=== PATIENT | female | born 1970 | race Caucasian/White ===

== ENCOUNTER 2017-12-26 16:28 | Emergency (ER) | payer MEDICAID, SELFPAY ==
[2017-12-26 16:29] VITALS: BP 158/99; PULSE 84; RESP 19; TEMP 36.4; O2SAT 99; BMI 46.5
--- NOTE | 2017-12-26 16:30 | ED.RN ---
AFTER TRIAGING PT, PT C/O OF NECK PAIN, ARM PAINS, LEG PAINS, HARD TO HOLD HER HEAD UP, COLD FINGERS, COLD TOES.
--- NOTE | 2017-12-26 16:57 | CT_ITS ---
STUDY: CT ABDOMEN AND PELVIS WITHOUT CONTRAST REASON FOR EXAM: Female, 47 years old. Weakness RADIATION DOSAGE (If Supplied By Facility): CTDIvol = ( 24.12 ) mGy, DLP = ( 1343.95 ) mGycm TECHNIQUE: Transaxial images were obtained from the dome of the diaphragm to the symphysis pubis without oral contrast, and without intravenous contrast. Sagittal and coronal images were reconstructed. Individualized dose optimization techniques were used for this CT. COMPARISON: None. FINDINGS: The visualized lung bases are unremarkable. The visualized portions of the heart are within normal limits. Normal liver. Contracted gallbladder. No significant dilatation of the extrahepatic biliary system. Normal spleen. Normal pancreas. Normal bilateral adrenal glands. Normal right kidney. Normal left kidney. Normal visualized stomach. Normal small intestine. Normal colon. The appendix is visualized and appears normal. Normal abdominal aorta. Normal inferior vena cava. Normal retroperitoneum. Normal urinary bladder. Enlarged lobulated uterus. Underlying fibroids cannot be excluded. Fatty umbilical and ventral hernias are noted of the anterior abdominal wall. Normal osseous structures. CT/Abdomen/Pelvis without Cont IMPRESSION: Fatty ventral and umbilical hernias. Enlarged lobulated uterus with possible fibroids. Electronically Signed: Trey Garcia DO at 18:33 EDT Tel [phone], Service support ,
[2017-12-26] MEDS: 0.9% Normal Saline 1,000 ML 1000 ML IV (17:30)
[2017-12-26 17:49] LABS: Absolute Neutrophil Count 4.5 X10^3/uL (2.0-7.7); Basophil# 0.01 X10^3/uL; Basophil% 0.1 % (0-1); Eosinophil# 0.17 X10^3/uL; Eosinophils% 2.5 % (0-5); Hematocrit 34.1 % (37-47); Mean Corp Hgb Conc 32.3 g/gl (32-36); Mean Corpuscular Hgb 26.4 pg (27.0-32.0); Mean Platelet Vol. 10.7 fl (6.2-12.0); Monocyte# 0.42 X10^3/uL; Monocyte% 6.1 % (0-10); Neutrophil # 4.51 X10^3/uL (2.7-7.7); Platelet Count 262 K/mm3 (150-450); RBC Distribution Width CV 14.1 % (11.6-14.6); RBC Distribution Width SD 40.9 fl (35.1-43.9); Red Blood Count 4.16 M/mm3 (4.2-5.4); White Blood Count 6.9 K/mm3 (4.4-11.0)
[2017-12-26 17:51] LABS: POSITIVE COUNT NO; POSITIVE DIFFERENTIAL NO; POSITIVE MORPHOLOGY NO
[2017-12-26 18:13] LABS: ALB/GLOB Ratio 0.9 RATIO (0.9-2.4); AST(SGOT) 24 U/L (15-37); Alanine Aminotransfer ALT/SGPT 26 U/L (13-56); Albumin, Serum 3.4 g/dL (3.2-5.0); Alkaline Phosphatase 81 U/L (45-117); Anion Gap 8 (5-15); BUN 11 mg/dL (7-18); BUN/Creat Ratio 12.3 RATIO (10-20); Chloride 109 mmol/L (98-107); Creatinine, Serum 0.89 mg/dL (0.55-1.02); EST Glomerular Filtration Rate 72 mL/min (>60); Est Glom Filt Rate - Afr Amer 87 mL/min (>60); Estimated Creatinine Clearance 81.67 ml/min; Globulin 3.8 g/dL (2.2-4.2); Glucose 128 mg/dL (74-106); Lipase 102 U/L (73-393); Potassium 3.6 mmol/L (3.5-5.1); Protein, Total 7.2 g/dL (6.4-8.2); Sodium Level 144 mmol/L (136-145)
[2017-12-26 19:30] LABS: Mucous, Urine 0 SEEN /hpf (<or=2+); Squamous Epithelial Cells - UA 0 SEEN /hpf (5-10)
[2017-12-26 19:31] LABS: Color, Urine Yellow (Yellow); Glucose, Dipstick Normal (Normal); Ketone-Dipstick Negative (Negative); Leukocyte Esterase-Dipstick 25 /ul (Negative); Nitrite-Dipstick Negative (Negative); Occult Blood-Urine 250 /ul (Negative); Protein-Dipstick 15 mg/dl (Negative); Urine Bilirubin Dipstick Negative (Negative); Urine Clarity Sl. Cloudy (Clear); Urine Urobilinogen Normal (Normal)
[2017-12-26 19:40] LABS: Bacteria 1+ /hpf (None Seen); Red Blood Cells-Urine 0-5 SEEN /hpf (0-5); White Blood Cells 0-5 SEEN /hpf (0-5)
[2017-12-26 22:00] VITALS: BP 145/86; PULSE 81; RESP 18; O2SAT 93
--- NOTE | 2017-12-26 22:50 | ED.DCSUM_ITS ---
- ER Visit Summary Date of Service: 12/26/17 Chief Complaint: Weakness, rectal bleeding History of Present Illness: The patient is a 47 F who presents with weakness and rectal bleeding that began yesterday. Patient states that she has been feeling weaker from her myasthenia gravis. Patient did not take her prednisone today. Patient states she has been passing out for the past 2 days. Patient states she has been sleeping approximately 22 hours over the past 2 days. Patient states she has a history of urinary incontinence. Patient denies any dysuria. Patient states that she did go to the bathroom and had some diarrhea and noticed blood in the toilet. Patient was unsure if it was blood from her urine or rectum. Patient thinks it was from her rectum. Patient states she has urinated since that time and did not have any blood in her urine. Patient also admits to some bruising which is new. Patient states she recently quit smoking and thinks her blood has become more thin. Patient does admit to some nausea and vomiting. Patient denies any fevers or chills. Physical Examination: Vital signs are stable. Patient is afebrile. Patient is in no acute distress. Oral mucosa is pink and moist. Pupils are equal, round, reactive to light bilaterally. Extraocular muscles are intact. Neck is supple. Heart was regular rate and rhythm. Lungs are clear and equal bilaterally. There is good respiratory effort noted. Abdomen is soft. Bowel sounds are normal. There is no tenderness. Rectal exam showed good sphincter tone. There was small amount of brown stool. There are external hemorrhoids noted. Hemoccult is positive. Cranial nerves II through XII are intact. There are no focal motor or sensory deficits noted. There is generalized weakness of the upper and lower extremities bilaterally. The remaining physical exam is within normal limits. Test Results: CBC showed a hemoglobin of 11.0. Basic metabolic profile is within normal limits. Urinalysis does not show any hematuria. There is no evidence of urinary tract infection. CT scan of the abdomen and pelvis was obtained and did not show any acute abnormality. Emergency Department Course and Treatment: Patient was given a dose of Reglan and Benadryl here for her nausea and headache. Patient was advised of her laboratory results. Patient is hemodynamically stable and is able to be discharged. Patient was instructed to follow-up with her primary care physician in 5-7 days. She understood and was agreeable with the plan. All questions were answered. Disposition: Discharge home Impression: Generalized weakness, history of myasthenia gravis This note was generated with [employer] dictation software. It may contain incorrect words, spelling, and punctuation that were not noted in review of the chart prior to signing ED Disposition - Plan for ED Patient: Disposition: Home or Assisted Living Chief Complaint: General Illness Diagnosis: Generalized weakness, History of myasthenia gravis, External hemorrhoids Instructions: ED Weakness [facility] Referrals: Anirudh Nance MD [Primary Care Provider] -
[2017-12-27 00:11] VITALS: BP 152/87; PULSE 78; RESP 20; O2SAT 98
== END 2017-12-27 00:34 | disposition home or self-care (01) ==
PROVIDERS: Emergency Provider Emergency Medicine; Family Provider Family Medicine; PCP Family Medicine
DX: R53.1 Weakness (principal); G70.00 Myasthenia gravis without (acute) exacerbation; K64.4 Residual hemorrhoidal skin tags; E11.9 Type 2 diabetes mellitus without complications; R11.2 Nausea with vomiting, unspecified; M79.7 Fibromyalgia; R51 Headache; R06.00 Dyspnea, unspecified; E66.9 Obesity, unspecified; F41.9 Anxiety disorder, unspecified; Z79.84 Long term (current) use of oral hypoglycemic drugs; Z79.52 Long term (current) use of systemic steroids; Z79.899 Other long term (current) drug therapy; Z87.891 Personal history of nicotine dependence; R32 Unspecified urinary incontinence
CPT/HCPCS: 74176; 80053; 81001; 82274; 83690; 85025; 96360; 96361; 99283; J7030; A4216

== ENCOUNTER 2018-01-15 23:04 | Emergency (ER) | payer MEDICAID, SELFPAY ==
[2018-01-15 23:06] VITALS: BP 179/104; PULSE 90; RESP 16; TEMP 36.8; O2SAT 96; BMI 40.1
[2018-01-15 23:08] VITALS: O2SAT 96
--- NOTE | 2018-01-15 23:16 | RAD_ITS ---
STUDY: X-RAY CHEST REASON FOR EXAM: Female, 47 years old. Shortness of breath. TECHNIQUE: Single AP portable view of the chest. COMPARISON: None. FINDINGS: The lungs are clear and expanded. There is no demonstrated pleural abnormality. Normal size heart. Normal mediastinum and k[place]. Normal visualized pulmonary arteries. Normal visualized aortic arch and descending thoracic aorta. There are mild degenerative changes of the visualized thoracic spine. Normal visualized ribs, clavicles, and shoulders. There is no demonstrated abnormality of the visualized soft tissue structures of the upper abdomen. RAD/Chest 1 View (Portable) IMPRESSION: No active pulmonary disease. Electronically Signed: Sin Medley MD at 0:04 EDT Tel , Service support ,
--- NOTE | 2018-01-15 23:16 | EKG12_ITS ---
Test Reason : ASTHMA Blood Pressure : / mmHG Vent. Rate : 087 BPM Atrial Rate : 087 BPM P-R Int : 162 ms QRS Dur : 094 ms QT Int : 380 ms P-R-T Axes : 033 001 003 degrees QTc Int : 457 ms Normal sinus rhythm Low voltage QRS (PRECORDIAL LEADS) Confirmed by SUNITHA CARPENTER ([id number]), film editor MARY VIZCAINO ([id number] on 01/17/2018 9:37:23 AM Referred By: DAX Confirmed By:SUNITHA CARPENTER
--- NOTE | 2018-01-15 23:20 | NURSING ---
NO OLD EKG'S IN MUSE
[2018-01-16 00:12] LABS: Absolute Lymphocyte Count 1.27 X10^3/ul (0.83-4.51); Absolute Neutrophil Count 8.2 X10^3/uL (2.0-7.7); Basophil# 0.02 X10^3/uL; Basophil% 0.2 % (0-1); Eosinophil# 0.12 X10^3/uL; Eosinophils% 1.2 % (0-5); Hematocrit 36.5 % (37-47); Hemoglobin 12.1 g/dl (12.0-15.0); Lymphocyte # 1.27 X10^3/ul (4.0); Lymphocyte % 12.3 % (19-41); Mean Corp Hgb Conc 33.2 g/gl (32-36); Mean Corpuscular Hgb 26.9 pg (27.0-32.0); Mean Corpuscular Volume 81.1 fL (81-99); Mean Platelet Vol. 10.7 fl (6.2-12.0); Monocyte# 0.62 X10^3/uL; Neutrophil # 8.24 X10^3/uL (2.7-7.7); Neutrophil % 80.1 % (47-70); Platelet Count 281 K/mm3 (150-450); RBC Distribution Width CV 14.3 % (11.6-14.6); RBC Distribution Width SD 41.5 fl (35.1-43.9); White Blood Count 10.3 K/mm3 (4.4-11.0)
[2018-01-16 00:13] LABS: POSITIVE COUNT NO; POSITIVE DIFFERENTIAL NO; POSITIVE MORPHOLOGY NO
[2018-01-16 00:14] VITALS: BP 142/92; PULSE 85; RESP 16; O2SAT 97
[2018-01-16 00:20] LABS: AST(SGOT) 17 U/L (15-37); Alanine Aminotransfer ALT/SGPT 21 U/L (13-56); Albumin, Serum 3.8 g/dL (3.2-5.0); Alkaline Phosphatase 99 U/L (45-117); Anion Gap 7 (5-15); BUN 11 mg/dL (7-18); BUN/Creat Ratio 10.8 RATIO (10-20); Calcium,Total 9.1 mg/dL (8.5-10.1); Chloride 106 mmol/L (98-107); Creatinine, Serum 1.02 mg/dL (0.55-1.02); EST Glomerular Filtration Rate 62 mL/min (>60); Est Glom Filt Rate - Afr Amer 75 mL/min (>60); Estimated Creatinine Clearance 73.73 ml/min; Globulin 3.9 g/dL (2.2-4.2); Glucose 142 mg/dL (74-106); Potassium 3.8 mmol/L (3.5-5.1); Protein, Total 7.7 g/dL (6.4-8.2); Sodium Level 139 mmol/L (136-145)
--- NOTE | 2018-01-16 00:27 | ED.VISSUMM ---
- ER Visit Summary Date of Service: 01/16/18 Chief Complaint: Shortness of breath, feels like things are stuck in throat History of Present Illness: The patient is a 47 F with reported history of myasthenia gravis who presents to the emergency department with trouble swallowing. The patient states that she was eating tonight. She felt like ground meat got stuck in the back of her throat. She states that this made her feel very short of breath. She states that she tried her inhaler, but it sprayed on her tongue. She tried it again in her shortness of breath had resolved. She states that she feels like there is something stuck in her throat. She has been able to drink. She denies any weakness. She is on no medications for her myasthenia. She states that she is also been having loose diarrhea. The patient was seen here 2 weeks ago and had a benign workup including CT. She states that her symptoms have improved. Physical Examination: Vital signs reviewed General: Well-nourished, well-developed Head: Normocephalic, atraumatic Eyes: Pupils equal and reactive, extraocular muscles intact Neck, supple, no lymphadenopathy Heart: Regular rate and rhythm Respiratory: No distress, clear bilaterally Abdomen: Soft, nontender, nondistended, no peritoneal signs Back: Nontender Extremities: Nontender, no edema, no cords Skin: Normal color no rash Neuro: Alert and oriented, no focal or lateralizing deficits Test Results: [] Emergency Department Course and Treatment: The posterior oropharynx is widely patent. The patient had me actually put my fingers in her mouth to feel this whole. I do not feel a palpable diverticulum. There is no retained material. She has no trismus or stridor. I did give the patient oral Decadron for her symptoms of throat swelling. Chest x-ray was unremarkable. Labs were unremarkable. The patient has no weakness. She has no diminished respiratory drive. I do not feel this represents a myasthenia flare. I do feel that this is more likely symptomatic throat sensation causing her symptoms. I do not feel further workup is necessary. The patient will be discharged home. Treatment Plan: [] Disposition: Discharge Impression: 1. Foreign body sensation throat This note was generated with [employer] software. It may contain incorrect words, spelling, and punctuation that were not noted in review of the chart prior to signing ED Disposition - Plan for ED Patient: Chief Complaint: Asthma Instructions: ED Dyspnea Shortness of Breath Referrals: Anirudh Nance MD [Primary Care Provider] - 2 Days
[2018-01-16 00:43] VITALS: BP 142/92; PULSE 84; RESP 16; O2SAT 98
== END 2018-01-16 00:49 | disposition home or self-care (01) ==
LOC: ED 23:55
PROVIDERS: Emergency Provider Emergency Medicine; Family Provider Family Medicine; PCP Family Medicine
DX: R09.89 Other specified symptoms and signs involving the circulatory and respiratory systems (principal); G70.00 Myasthenia gravis without (acute) exacerbation; R19.7 Diarrhea, unspecified; J45.909 Unspecified asthma, uncomplicated; Z79.52 Long term (current) use of systemic steroids; Z79.899 Other long term (current) drug therapy; Z87.891 Personal history of nicotine dependence
CPT/HCPCS: 71045; 80053; 85025; 93005; 96374; 99285; J7030; J7040; A4216

== ENCOUNTER 2018-02-27 16:19 | Emergency (ER) | payer MEDICAID, SELFPAY ==
[2018-02-27 16:21] VITALS: BP 134/83; PULSE 60; RESP 18; TEMP 36.6; O2SAT 96; BMI 44.6
--- NOTE | 2018-02-27 16:24 | ED.RN ---
WHILE IN TRIAGE PT COMPLAINTS CHANGE AND DIFFER FROM ORIGINAL COMPLAINT. PT CONTINUES TO ADD MORE COMPLAINTS TO INITIAL ASSESSMENT.
--- NOTE | 2018-02-27 17:21 | CT_ITS ---
STUDY: CTA OF THE BRAIN REASON FOR EXAM: Female, 47 years old. Chest pain, dizziness RADIATION DOSAGE (If Supplied By Facility): CTDIvol = ( 24.93 ) mGy, DLP = ( 2566.89 ) mGycm TECHNIQUE: CT angiography was performed with a multi-detector CT scanner. Data acquisition was obtained from the skull base through the vertex following intravenous administration of 100 ml of Isovue-370. MIP images were reconstructed from the axial data set. Post-processing of the angiographic images was performed, with multiplanar reformation and 3D reconstruction. Individualized dose optimization techniques were used for this CT. COMPARISON: None. FINDINGS: Normal bilateral petrous carotid arteries. Normal right cavernous carotid artery with a normal supraclinoid bifurcation. Normal left cavernous carotid artery with a normal supraclinoid bifurcation. Normal right A1 segments of the anterior cerebral artery. Normal left A1 segments of the anterior cerebral artery. Normal intact anterior communicating artery (ACOM). Normal bilateral A2 segments of the anterior cerebral arteries. Normal right M1 and M2 segments of the middle cerebral arteries, with a normal M1 bifurcation. Normal left M1 and M2 segments of the middle cerebral arteries, with a normal M1 bifurcation. Nonvisualization of the posterior communicating arteries (PCOM). Normal bilateral vertebral arteries. Normal basilar artery with a normal basilar bifurcation. The visualized bilateral superior cerebellar (SCA) arteries are normal. Normal bilateral P1, P2 and visualized P3 segments of the posterior cerebral arteries. There is no demonstrated aneurysm of the [place]. There is no demonstrated abnormality of the visualized brain. CT/CTA Head W/WO Contrast IMPRESSION: Normal [place] without a demonstrated aneurysm or hemodynamically significant stenosis. Electronically Signed: Trey Garcia DO at 20:33 EDT Tel [phone], Service support ,
--- NOTE | 2018-02-27 17:21 | CT_ITS ---
STUDY: CTA CHEST REASON FOR EXAM: Female, 47 years old. Chest pain. Left arm pain. RADIATION DOSAGE (If Supplied By Facility): CTDIvol = ( 24.93 ) mGy, DLP = ( 2566.89 ) mGycm TECHNIQUE: The examination was performed with the intravenous administration of 100 ml of Isovue 370 contrast material. Post-processing of the angiographic images was performed, with multiplanar reformation and 3D reconstruction. Individualized dose optimization techniques were used for this CT. COMPARISON: None. FINDINGS: There is limited enhancement of the main pulmonary artery and right and left pulmonary arteries. There is limited enhancement of the bilateral peripheral pulmonary arteries. There is no demonstrated pulmonary embolism. Normal thoracic aorta and visualized great vessels. There is no demonstrated aortic dissection. Normal heart and pericardium. Normal mediastinum. Normal hilar regions. Normal visualized trachea and bronchi. The lungs are well expanded. Normal pulmonary parenchyma. Normal pleura. Normal chest wall structures. There are degenerative changes of thoracic spine. Normal visualized upper abdomen. CT/CTA Chest W/WO Contrast IMPRESSION: CTA chest examination, without a demonstrated pulmonary embolism or arterial dissection. No focal infiltrate. Electronically Signed: Homeor Gallegos MD at 20:35 EDT , Service support ,
--- NOTE | 2018-02-27 17:21 | CT_ITS ---
STUDY: CTA NECK WITH CONTRAST REASON FOR EXAM: Female, 47 years old. Chest pain, dizziness RADIATION DOSAGE (If Supplied By Facility): CTDIvol = ( 24.93 ) mGy, DLP = ( 2566.89 ) mGycm TECHNIQUE: CT angiography with multi-detector data acquisition was performed from the aortic arch to the skull base following intravenous administration of 100 ml of Isovue 370 contrast. MIP images were reconstructed from the axial data set. Post-processing of the angiographic images was performed, with multiplanar reformation and 3D reconstruction. Individualized dose optimization techniques were used for this CT. COMPARISON: None. FINDINGS: AORTIC ARCH: Normal visualized aortic arch. Normal origins of the brachiocephalic, left common carotid, and left subclavian arteries. RIGHT CAROTID ARTERIES: Normal right common carotid artery (CCA). Normal right common carotid bulb. Normal origin of the right internal carotid (ICA) artery without a hemodynamically significant stenosis. Normal visualized cervical portion of the right internal carotid artery. Normal origin of the right external carotid artery (ECA). LEFT CAROTID ARTERIES: Normal left common carotid artery (CCA). Normal left common carotid bulb. Normal origin of the left internal carotid (ICA) artery without a hemodynamically significant stenosis. Normal visualized cervical portion of the left internal carotid artery. Normal origin of the left external carotid artery (ECA). VERTEBRAL ARTERIES: Normal bilateral vertebral arteries. CT/CTA Neck W/WO Contrast IMPRESSION: Normal bilateral cervical carotid and vertebral arteries. Electronically Signed: Trey Garcia DO at 20:37 EDT Tel [phone], Service support ,
--- NOTE | 2018-02-27 17:21 | EKG12_ITS ---
Test Reason : CP Blood Pressure : / mmHG Vent. Rate : 058 BPM Atrial Rate : 058 BPM P-R Int : 156 ms QRS Dur : 084 ms QT Int : 420 ms P-R-T Axes : 034 008 011 degrees QTc Int : 412 ms Sinus bradycardia Otherwise normal ECG Confirmed by GAIL TERRY, DUSTIN ([id number]), tape editor MARY VIZCAINO ([id number]) on 02/28/2018 5:12:02 PM Referred By: DEBBIE Confirmed By:DUSTIN REYNOLDS MD
--- NOTE | 2018-02-27 17:22 | RAD_ITS ---
STUDY: X-RAY - LEFT HUMERUS REASON FOR EXAM: Female, 47 years old. Left arm pain. TECHNIQUE: 2 view(s) of the humerus. COMPARISON: None. FINDINGS: Normal visualized humerus. There is no demonstrated fracture or osseous destructive process. There is no demonstrated soft tissue abnormality. RAD/Humerus min 2 Views IMPRESSION: Normal x-ray examination of the humerus. Electronically Signed: Homero Gallegos MD at 20:28 EDT , Service support ,
--- NOTE | 2018-02-27 17:22 | RAD_ITS ---
STUDY: X-RAY - LEFT RADIUS AND ULNA REASON FOR EXAM: Female, 47 years old. Pain TECHNIQUE: 2 view(s) of the forearm. COMPARISON: None. FINDINGS: There is no demonstrated soft tissue swelling. Normal visualized radius. Normal visualized proximal ulna. There is nonunited ulnar styloid fracture . RAD/Forearm 2 Views IMPRESSION: No acute fracture. Electronically Signed: Homero Gallegos MD at 20:27 EDT , Service support ,
--- NOTE | 2018-02-27 17:25 | ED.VISSUMM ---
- ER Visit Summary Date of Service: 02/27/18 Chief Complaint: Left arm pain History of Present Illness: The patient is a 47 F presenting with left arm pain. Patient states that she was at [facility] in January for myasthenia gravis crisis. She was discharged mid-January. She states she presented to ED at [facility] January 27 and . During her last visit she had an IV placed. She states she has had persistent bruising on her left upper extremity since that time. She states she has had pain in the area that is traveling to her upper arm. She is concerned about possibility of blood clot. She states she also has chest pain intermittently for the past 5 days. She also complains of stuttering of her speech for the past 2 days intermittently. She was advised by her home nurse to come to the emergency department. Physical Examination: Vitals are stable. Patient is afebrile. Alert no acute distress. HEENT exam is unremarkable. Neck is supple. Lungs are clear and equal bilaterally. Heart is regular rate and rhythm. Abdomen is soft nontender nondistended. Extremities ecchymosis to the left forearm, neurovascularly intact distally Skin is warm and dry. No focal neurologic deficit. NIH 0 Remainder of exam is unremarkable. Emergency Department Course and Treatment: EKG sinus bradycardia rate of 58 with no acute ischemic changes. CBC shows hemoglobin 10.6, platelets 78. Chemistries unremarkable. Troponin is negative. CTA head shows normal [place] without a demonstrated aneurysm or hemodynamically significant stenosis. CTA neck shows normal bilateral cervical carotid and vertebral arteries. CTA chest examination, without a demonstrated pulmonary embolism or arterial dissection. No focal infiltrate. Unable to obtain a venous Doppler of upper extremity at this time. She is given an order form for a venous Doppler upper extremity for tomorrow morning. She is advised to follow-up with hematology for low platelet count. Repeat troponin is negative. She is resting comfortably in the emergency department. She declines admission. She prefers to go home and will follow up with her physicians. Advised return to the ED for worsening complaints. Disposition: Discharge home Impression: Atypical chest pain, left upper extremity ecchymosis This note was generated with [employer] dictation software. It may contain incorrect words, spelling, and punctuation that were not noted in review of the chart prior to signing ED Disposition - Plan for ED Patient: Chief Complaint: General Illness Instructions: ED Chest Pain Atypical Unkn Cause Referrals: Anirudh Nance MD [Primary Care Provider] - Trevin Cates DO [STAFF PHYSICIAN] -
--- NOTE | 2018-02-27 17:29 | ED.DCSUM_ITS ---
- ER Visit Summary Date of Service: 02/27/18 Chief Complaint: Left arm pain History of Present Illness: The patient is a 47 F presenting with left arm pain. Patient states that she was at [facility] in January for myasthenia gravis crisis. She was discharged mid-January. She states she presented to ED at [facility] January 27 and . During her last visit she had an IV placed. She states she has had persistent bruising on her left upper extremity since that time. She states she has had pain in the area that is traveling to her upper arm. She is concerned about possibility of blood clot. She states she also has chest pain intermittently for the past 5 days. She also complains of stuttering of her speech for the past 2 days intermittently. She was advised by her home nurse to come to the emergency department. Physical Examination: Vitals are stable. Patient is afebrile. Alert no acute distress. HEENT exam is unremarkable. Neck is supple. Lungs are clear and equal bilaterally. Heart is regular rate and rhythm. Abdomen is soft nontender nondistended. Extremities ecchymosis to the left forearm, neurovascularly intact distally Skin is warm and dry. No focal neurologic deficit. NIH 0 Remainder of exam is unremarkable. Emergency Department Course and Treatment: EKG sinus bradycardia rate of 58 with no acute ischemic changes. CBC shows hemoglobin 10.6, platelets 78. Chemistries unremarkable. Troponin is negative. CTA head shows normal [place] without a demonstrated aneurysm or hemodynamically significant stenosis. CTA neck shows normal bilateral cervical carotid and vertebral arteries. CTA chest examination, without a demonstrated pulmonary embolism or arterial dissection. No focal infiltrate. Unable to obtain a venous Doppler of upper extremity at this time. She is given an order form for a venous Doppler upper extremity for tomorrow morning. She is advised to follow-up with hematology for low platelet count. Repeat troponin is negative. She is resting comfortably in the emergency department. She declines admission. She prefers to go home and will follow up with her physicians. Advised return to the ED for worsening complaints. Disposition: Discharge home Impression: Atypical chest pain, left upper extremity ecchymosis This note was generated with [employer] dictation software. It may contain incorrect words, spelling, and punctuation that were not noted in review of the chart prior to signing ED Disposition - Plan for ED Patient: Chief Complaint: General Illness Instructions: ED Chest Pain Atypical Unkn Cause Referrals: Anirudh Nance MD [Primary Care Provider] - Trevin Cates DO [STAFF PHYSICIAN] -
[2018-02-27 18:54] VITALS: O2SAT 97
[2018-02-27 19:00] VITALS: PULSE 63; RESP 18; O2SAT 97
[2018-02-27 19:06] LABS: Anion Gap 6 (5-15); BUN 10 mg/dL (7-18); Calcium,Total 9.5 mg/dL (8.5-10.1); Chloride 107 mmol/L (98-107); EST Glomerular Filtration Rate 63 mL/min (>60); Est Glom Filt Rate - Afr Amer 76 mL/min (>60); Glucose 101 mg/dL (74-106); Potassium 4.7 mmol/L (3.5-5.1); Sodium Level 139 mmol/L (136-145)
--- NOTE | 2018-02-27 19:14 | ED.RN ---
PT REFUSES BOTH ASPIRIN AND ATIVAN. STATES I'M WORRIED BY BLOOD IS ALREADY TOO THIN, BLED TOO MUCH WITH RECENT PIERCING. REFUSES ATIVAN HEART RATE IS TOO LOW. PT EDUCATED ON BENEFITS OF BOTH MEDS, CONTINUES TO REFUSE.
[2018-02-27 21:39] VITALS: BP 125/96; PULSE 57; RESP 16; O2SAT 97
[2018-02-27 21:50] VITALS: BP 125/81; PULSE 61; RESP 18; O2SAT 96
--- NOTE | 2018-02-27 21:51 | ED.RN ---
PT ASKS TO SPEAK TO MD MARA AWARE. PT STATES SHE IS HUNGRY, FOOD AND DRINK OFFERED TO PT, SHE REFUSES STATING SHE IS ON A SPECIAL DIET AND CANNOT EAT OUR FOOD.
--- NOTE | 2018-02-27 23:01 | ED.DEP ---
ED Disposition - Plan for ED Patient: Chief Complaint: General Illness Instructions: ED Chest Pain Atypical Unkn Cause Referrals: Anirudh Nance MD [Primary Care Provider] -
--- NOTE | 2018-02-27 23:05 | ED.DEP ---
ED Disposition - Plan for ED Patient: Chief Complaint: General Illness Instructions: ED Chest Pain Atypical Unkn Cause Referrals: Anirudh Nance MD [Primary Care Provider] - Trevin Cates DO [STAFF PHYSICIAN] -
[2018-02-27 23:40] VITALS: BP 138/87; PULSE 56; RESP 19; O2SAT 95
== END 2018-02-27 23:41 | disposition home or self-care (01) ==
LOC: ED 17:27
PROVIDERS: Emergency Provider Emergency Medicine; Family Provider Family Medicine; PCP Family Medicine
DX: R07.89 Other chest pain (principal); S40.022A Contusion of left upper arm, initial encounter; Y84.8 Other medical procedures as the cause of abnormal reaction of the patient, or of later complication, without mention of misadventure at the time of the procedure; Y92.9 Unspecified place or not applicable; Y93.9 Activity, unspecified; Y99.9 Unspecified external cause status; G70.00 Myasthenia gravis without (acute) exacerbation; E11.9 Type 2 diabetes mellitus without complications; R00.1 Bradycardia, unspecified; Z79.52 Long term (current) use of systemic steroids; Z87.891 Personal history of nicotine dependence
CPT/HCPCS: 70496; 70498; 71275; 73060; 73090; 80048; 84484; 85025; 93005; 99285; Q9967; A4216

== ENCOUNTER → 2018-03-01 14:04 | Outpatient (CLI) | payer MEDICAID, SELFPAY ==
--- NOTE | 2018-03-01 14:08 | VDUE_ITS ---
Reason For Study: pain Left Proximal Left jugular vein is spontaneous, widely patent, phasic, with no intraluminal echogenicity noted. Left subclavian vein is spontaneous, widely patent, phasic, with no intraluminal echogenicity noted. Left Arm Left axillary vein is spontaneous, patent, phasic, competent, compressible and demonstrates augmentation. Left brachial vein is compressible. Left cephalic vein is compressible. Left basilic vein is compressible. Left Lower Arm Left radial vein is compressible. Left ulnar vein is compressible. < Interpretation Summary 1. Left arm with normal flow and no DVt or SVT. Ordering Physician: Emeka Brooks Performed By: Navi Hancock RVT ??? Reason For Study: pain < Interpretation Summary Ordering Physician: Emeka Brooks Performed By: Navi Hancock RVT
== END ==
PROVIDERS: Family Provider Family Medicine; PCP Family Medicine; Visit Provider Emergency Medicine
DX: M79.602 Pain in left arm (principal)
CPT/HCPCS: 93971

== ENCOUNTER 2018-03-20 09:03 | Emergency (ER) | payer MEDICAID, SELFPAY ==
[2018-03-20 09:04] VITALS: BP 143/94; PULSE 64; RESP 18; TEMP 36.6; O2SAT 100; BMI 45.6
[2018-03-20] MEDS: 0.9% Normal Saline 1,000 ML 1000 ML IV (10:15)
[2018-03-20 10:21] LABS: Absolute Lymphocyte Count 2.12 X10^3/ul (0.83-4.51); Absolute Neutrophil Count 5.8 X10^3/uL (2.0-7.7); Basophil# 0.03 X10^3/uL; Basophil% 0.3 % (0-1); Eosinophils% 1.2 % (0-5); Hematocrit 39.8 % (37-47); Lymphocyte # 2.12 X10^3/ul (4.0); Lymphocyte % 24.5 % (19-41); Mean Corp Hgb Conc 32.7 g/gl (32-36); Mean Corpuscular Hgb 27.7 pg (27.0-32.0); Mean Corpuscular Volume 84.7 fL (81-99); Mean Platelet Vol. 11.5 fl (6.2-12.0); Monocyte# 0.59 X10^3/uL; Monocyte% 6.8 % (0-10); Neutrophil % 67.1 % (47-70); Platelet Count 225 K/mm3 (150-450); RBC Distribution Width CV 15.8 % (11.6-14.6); RBC Distribution Width SD 48.8 fl (35.1-43.9); White Blood Count 8.7 K/mm3 (4.4-11.0)
[2018-03-20 10:26] LABS: POSITIVE COUNT NO; POSITIVE DIFFERENTIAL NO; POSITIVE MORPHOLOGY NO
[2018-03-20 10:33] LABS: Anion Gap 7 (5-15); BUN 10 mg/dL (7-18); BUN/Creat Ratio 9.8 RATIO (10-20); Calcium,Total 9.3 mg/dL (8.5-10.1); Chloride 107 mmol/L (98-107); Creatinine, Serum 1.02 mg/dL (0.55-1.02); EST Glomerular Filtration Rate 62 mL/min (>60); Est Glom Filt Rate - Afr Amer 75 mL/min (>60); Estimated Creatinine Clearance 66.31 ml/min; Glucose 104 mg/dL (74-106); Potassium 3.3 mmol/L (3.5-5.1); Sodium Level 141 mmol/L (136-145)
--- NOTE | 2018-03-20 10:54 | ED.DCSUM_ITS ---
- ER Visit Summary Date of Service: 03/20/18 Chief Complaint: Vaginal bleeding History of Present Illness: The patient is a 47 F [facility]. She reports that she has vaginal bleeding began yesterday. States that she has had to change her polyp twice in the past hour and a half. She denies any abdominal pain. She has been nauseated without vomiting. No diarrhea. No dysuria or frequency. Physical Examination: Vitals: Stable. Afebrile. General: Well-nourished and well-developed. Head: Normocephalic atraumatic. Neck: Supple, no lymphadenopathy. No JVD. Nontender. Cardiovascular: Regular rate and rhythm. No murmurs. Respiratory: No respiratory distress. Clear to auscultation bilaterally. Abdominal: Soft, nontender, nondistended, normal bowel sounds. No guarding, rebound, or peritoneal signs. Back: Nontender. Extremities: Nontender, no edema. Skin: Normal color, no rash. Neurologic: Alert and oriented ?3. Cranial nerves II through XII are intact. Normal sensation. 4 out of 5 strength throughout. Psych: Normal affect. Test Results: CBC is marked for hemoglobin of 13.0. Chem-7 is marked potassium 3.3. Transvaginal ultrasound shows a markedly enlarged uterus with numerous fibroids. Borderline thickened endometrium at 13 mm. Emergency Department Course and Treatment: Patient is resting comfortably. Treatment Plan: Patient was discussed with Abigail Salazar. She will be discharged instructions to follow-up the office with the next 3 days for another exam. Return to the emergency department for any worsening symptoms. Disposition: To home in improved and stable condition. Impression: 1. Irregular vaginal bleeding. 2. Uterine fibroids. This note was generated with [employer] software. It may contain incorrect words, spelling, and punctuation that were not noted in review of the chart prior to signing ED Disposition - Plan for ED Patient: Disposition: Home or Assisted Living Chief Complaint: Vag Bleeding Instructions: ED Fibroids Referrals: Abigail Salazar CNM [Certified Nurse Vehicle Return Associate] - 2 Days
[2018-03-20 11:06] VITALS: PULSE 58; RESP 16
--- NOTE | 2018-03-20 11:10 | US_ITS ---
STUDY: ULTRASOUND OF THE FEMALE PELVIS - COMPLETE REASON FOR EXAM: Female, 47 years old. Bleeding LMP: 03/18/2018 TECHNIQUE: Transabdominal and Transvaginal TECHNICAL QUALITY: Adequate. COMPARISON: None. FINDINGS: The uterus is anteverted and is in a midline position. The uterus measures 12.8 x 9.9 x 7.4 cm. There is a Nabothian cyst of the cervix. The endometrium measures 13 mm in thickness, and is hyperechoic. Multiple large uterine fibroids, largest in the uterine fundus measuring 4.3 x 3.7 x 4 cm. There is no demonstrated myometrial mass. I.U.D. - The patient does not have an I.U.D. The right ovary is non-visualized. The left ovary is non-visualized. There is no fluid in the cul-de-sac. Polycystic ovary disease: No. US/Transvaginal Non- IMPRESSION: Markedly enlarged uterus with numerous fibroids. Nonvisualized ovaries. Borderline thickened endometrium Electronically Signed: Sarabjit Sadler DO at 12:41 EDT Tel , Service support ,
--- NOTE | 2018-03-20 13:25 | CM.ED ---
Social Work Note Referral from nursing that the pt had recently spoke with her lining caser and needed assistance with completion of a form. Face to face with the pt and introduced self and role at [facility]. Reports that she was just assigned a lining caser through [facility], Jayne Manjarrez ([phone]). Claims that she had [facility] services setup through her PCP, but that she needs additional services. Claims there was a Waiver Application faxed into [facility], but it was lost and one needs sent to [employer]. Assisted pt with completion of Request for Medicaid HCBS and faxed to [employer]. No further needs expressed. Pt to be discharged home this date. Abigail Mccain, TRANSFER AND LINE UP WORKER, VISUAL COMMUNICATIONS INSTRUCTOR
[2018-03-20 13:34] VITALS: BP 138/80; PULSE 61; RESP 16; O2SAT 95
== END 2018-03-20 13:42 | disposition home or self-care (01) ==
PROVIDERS: Emergency Provider Emergency Medicine; Family Provider Family Medicine; PCP Family Medicine
DX: N92.6 Irregular menstruation, unspecified (principal); D25.9 Leiomyoma of uterus, unspecified; N85.2 Hypertrophy of uterus; G70.00 Myasthenia gravis without (acute) exacerbation; M79.7 Fibromyalgia; R11.0 Nausea; J45.909 Unspecified asthma, uncomplicated; F41.9 Anxiety disorder, unspecified; Z79.84 Long term (current) use of oral hypoglycemic drugs; Z79.52 Long term (current) use of systemic steroids; Z79.899 Other long term (current) drug therapy; Z87.891 Personal history of nicotine dependence
CPT/HCPCS: 76830; 80048; 85025; 99285; J7030; A4216; J2405

== ENCOUNTER 2018-05-16 22:21 | Emergency (ER) | payer MEDICAID, SELFPAY ==
[2018-05-16 22:22] VITALS: BP 166/107; PULSE 69; RESP 18; TEMP 36.9; O2SAT 95; BMI 40.4
--- NOTE | 2018-05-16 22:42 | ED.DCSUM_ITS ---
- ER Visit Summary Date of Service: 05/16/18 Chief Complaint: [] Weakness History of Present Illness: The patient is a 47 F she stated she has had some generalized weakness for last 3 days. Is not activity related. Just feels diffuse. She has myasthenia gravis and does see a neurologist at the [facility] and she is on prednisone 15 mg daily chronically for this. She is also on methimazole for Graves' disease. Her last TSH was normal. Comes in for further evaluation of this. Current severity is mild. Physical Examination: [] Vital signs reviewed General: Well-nourished well-developed Head: Normocephalic atraumatic Eyes: Pupils equal round and reactive to light extraocular movements intact. Eyelids appear normal. ENT: TMs clear no hemotympanum no trauma. Phonation normal. Swallow normal. Tolerating secretions normal. Neck: Nontender full range of motion Cardiovascular: Regular rate rhythm no murmurs normal S1-S2 Respiratory: No distress clear to auscultation bilaterally chest nontender Abdomen: Soft nontender nondistended normal bowel sounds no masses Back: Nontender no CVA tenderness Extremities: Nontender active range of motion ?4 extremities no trauma Skin: Normal color no trauma Neuro alert oriented cranial nerves II through XII intact normal strength sensation reflexes Test Results: [] Emergency Department Course and Treatment: [] Patient's lab work unremarkable. CBC chemistry liver function tests and thyroid-stimulating unction tests okay. Initially we tried for IV fluids but unable to establish an IV. I do not think this is necessary. The patient will follow up with the neurologist. I do not think she is in a myasthenic crisis. I feel this is nonspecific Treatment Plan: [] Disposition: [] Impression: [] Generalized weakness This note was generated with [employer] dictation software. It may contain incorrect words, spelling, and punctuation that were not noted in review of the chart prior to signing ED Disposition - Plan for ED Patient: Chief Complaint: General Illness Referrals: Anirudh Nance MD [Primary Care Provider] -
[2018-05-17] LABS: Absolute Lymphocyte Count 2.65 X10^3/ul (0.83-4.51); Absolute Neutrophil Count 5.7 X10^3/uL (2.0-7.7); Basophil# 0.02 X10^3/uL; Basophil% 0.2 % (0-1); Eosinophil# 0.13 X10^3/uL; Eosinophils% 1.4 % (0-5); Hematocrit 38.7 % (37-47); Hemoglobin 12.5 g/dl (12.0-15.0); Lymphocyte # 2.65 X10^3/ul (4.0); Lymphocyte % 28.8 % (19-41); Mean Corp Hgb Conc 32.3 g/gl (32-36); Mean Corpuscular Hgb 28.2 pg (27.0-32.0); Mean Corpuscular Volume 87.2 fL (81-99); Mean Platelet Vol. 10.6 fl (6.2-12.0); Monocyte# 0.64 X10^3/uL; Neutrophil # 5.72 X10^3/uL (2.7-7.7); Neutrophil % 62.3 % (47-70); POSITIVE COUNT NO; POSITIVE DIFFERENTIAL NO; POSITIVE MORPHOLOGY NO; Platelet Count 235 K/mm3 (150-450); RBC Distribution Width CV 14.4 % (11.6-14.6); RBC Distribution Width SD 45.4 fl (35.1-43.9); Red Blood Count 4.44 M/mm3 (4.2-5.4); White Blood Count 9.2 K/mm3 (4.4-11.0)
[2018-05-17 00:23] LABS: BUN 7 mg/dL (7-18); BUN/Creat Ratio 8.8 RATIO (10-20); EST Glomerular Filtration Rate 82 mL/min (>60); Est Glom Filt Rate - Afr Amer 99 mL/min (>60); Estimated Creatinine Clearance 84.54 ml/min; Glucose 89 mg/dL (74-106)
[2018-05-17 00:24] LABS: ALB/GLOB Ratio 0.7 RATIO (0.9-2.4); AST(SGOT) 22 U/L (15-37); Alanine Aminotransfer ALT/SGPT 33 U/L (13-56); Albumin, Serum 2.8 g/dL (3.2-5.0); Alkaline Phosphatase 54 U/L (45-117); Anion Gap 8 (5-15); Calcium,Total 9.1 mg/dL (8.5-10.1); Chloride 108 mmol/L (98-107); Protein, Total 6.8 g/dL (6.4-8.2); Sodium Level 139 mmol/L (136-145)
[2018-05-17 00:32] VITALS: PULSE 58; RESP 16; O2SAT 97
[2018-05-17 00:40] LABS: Thyroid Stim Hormone (TSH) 0.99 uIU/mL (0.358-3.74)
--- NOTE | 2018-05-17 00:48 | ED.DEP ---
ED Disposition - Plan for ED Patient: Disposition: Home or Assisted Living Chief Complaint: General Illness Instructions: ED Weakness [facility] Referrals: Anirudh Nance MD [Primary Care Provider] - Additional Instructions: Please follow with your neurologist
[2018-05-17 00:57] VITALS: BP 148/60; PULSE 62; RESP 20; O2SAT 96
== END 2018-05-17 00:58 | disposition home or self-care (01) ==
PROVIDERS: Emergency Provider Emergency Medicine; Family Provider Family Medicine; PCP Family Medicine
DX: R53.1 Weakness (principal); G70.00 Myasthenia gravis without (acute) exacerbation; E05.00 Thyrotoxicosis with diffuse goiter without thyrotoxic crisis or storm; E66.9 Obesity, unspecified; Z79.84 Long term (current) use of oral hypoglycemic drugs; Z79.52 Long term (current) use of systemic steroids; Z79.899 Other long term (current) drug therapy
CPT/HCPCS: 80053; 84443; 85025; 99283; J7030; J7040; A4216

== ENCOUNTER 2018-07-03 14:36 | Emergency (ER) | payer MEDICAID, SELFPAY ==
[2018-07-03 14:38] VITALS: BP 138/87; PULSE 60; RESP 17; TEMP 36.7; O2SAT 98; BMI 37.9
[2018-07-03 14:59] VITALS: O2SAT 99
--- NOTE | 2018-07-03 15:16 | EKG12_ITS ---
Test Reason : CHEST TIGHTNESS Blood Pressure : / mmHG Vent. Rate : 054 BPM Atrial Rate : 054 BPM P-R Int : 164 ms QRS Dur : 086 ms QT Int : 442 ms P-R-T Axes : 030 011 012 degrees QTc Int : 419 ms Sinus bradycardia Otherwise normal ECG Confirmed by GAIL TERRY, DUSTIN ([id number]), video editor MARY VIZCAINO ([id number]) on 07/05/2018 10:04:58 AM Referred By: JASPAL/SAUL Confirmed By:DUSTIN REYNOLDS MD
--- NOTE | 2018-07-03 15:16 | RAD_ITS ---
STUDY: X-RAY CHEST REASON FOR EXAM: Female, 47 years old. Increasing shortness of breath and chest tightness. Bradycardia. TECHNIQUE: AP and lateral views of the chest. COMPARISON: Comparison is made with prior study dated January 15, 2018. FINDINGS: EKG electrodes are seen. The lungs are clear and expanded. There is no demonstrated pleural abnormality. Normal size heart. Normal mediastinum and kenyetta. Normal visualized pulmonary arteries. Normal visualized aortic arch and descending thoracic aorta. There are mild degenerative changes of the visualized thoracic spine. Normal visualized ribs, clavicles, and shoulders. There is no demonstrated abnormality of the visualized soft tissue structures of the upper abdomen. RAD/Chest PA and Lateral IMPRESSION: Normal x-ray examination of the chest. Electronically Signed: Phil Pagan MD at 15:55 EDT Tel [phone], Service support ,
[2018-07-03 15:32] LABS: Absolute Lymphocyte Count 2.28 X10^3/ul (0.83-4.51); Absolute Neutrophil Count 4.1 X10^3/uL (2.0-7.7); Basophil# 0.02 X10^3/uL; Basophil% 0.3 % (0-1); Eosinophil# 0.09 X10^3/uL; Eosinophils% 1.3 % (0-5); Hematocrit 38.5 % (37-47); Hemoglobin 12.8 g/dl (12.0-15.0); Lymphocyte # 2.28 X10^3/ul (4.0); Lymphocyte % 33.1 % (19-41); Mean Corp Hgb Conc 33.2 g/gl (32-36); Mean Corpuscular Hgb 28.2 pg (27.0-32.0); Mean Corpuscular Volume 84.8 fL (81-99); Mean Platelet Vol. 11.1 fl (6.2-12.0); Monocyte# 0.41 X10^3/uL; Neutrophil # 4.07 X10^3/uL (2.7-7.7); Neutrophil % 59.2 % (47-70); Platelet Count 231 K/mm3 (150-450); RBC Distribution Width CV 13.3 % (11.6-14.6); RBC Distribution Width SD 40.7 fl (35.1-43.9); Red Blood Count 4.54 M/mm3 (4.2-5.4); White Blood Count 6.9 K/mm3 (4.4-11.0)
[2018-07-03 15:33] LABS: POSITIVE COUNT NO; POSITIVE DIFFERENTIAL NO; POSITIVE MORPHOLOGY NO
[2018-07-03 16:05] LABS: ALB/GLOB Ratio 1.2 RATIO (0.9-2.4); AST(SGOT) 26 U/L (15-37); Alanine Aminotransfer ALT/SGPT 33 U/L (13-56); Albumin, Serum 3.8 g/dL (3.2-5.0); Alkaline Phosphatase 64 U/L (45-117); Anion Gap 5 (5-15); BUN 7 mg/dL (7-18); BUN/Creat Ratio 7.4 RATIO (10-20); Calcium,Total 9.3 mg/dL (8.5-10.1); Chloride 107 mmol/L (98-107); Creatinine, Serum 0.95 mg/dL (0.55-1.02); EST Glomerular Filtration Rate 67 mL/min (>60); Est Glom Filt Rate - Afr Amer 81 mL/min (>60); Estimated Creatinine Clearance 71.19 ml/min; Globulin 3.3 g/dL (2.2-4.2); Glucose 94 mg/dL (74-106); Potassium 3.7 mmol/L (3.5-5.1); Protein, Total 7.1 g/dL (6.4-8.2); Sodium Level 142 mmol/L (136-145); Thyroid Stim Hormone (TSH) 0.59 uIU/mL (0.358-3.74)
--- NOTE | 2018-07-03 16:07 | ED.DCSUM_ITS ---
- ER Visit Summary Date of Service: 07/03/18 Chief Complaint: Dyspnea, cough History of Present Illness: The patient is a 47 F patient states worsening dyspnea and cough for 3 days. Nonproductive. No fevers, chills, sweats. Patient reports being seen at [facility] 3 days ago with symptoms and stated due to her history of myasthenia gravis was being transferred to [facility] for which she declined and signed out AMA. She reports being diagnosed with myasthenia gravis this past January and was treated at [facility] with IVIG along with prednisone. She is being followed by neurology DrMargarito ([place]). Reports that her prednisone was supposed to increase to 60 mg since then, however states she becomes symptomatic with more fatigue and bradycardic. She states she follow-up with her PCP Dr. Nance, states he had a 24-hour Holter monitor at one time and does not know results. Reports her PCP stating that her medical history is beyond his management. Patient states due to her symptoms from prednisone she is maintaining daily medications of only 15 mg. Last week she states she ran out for 3 days however is restarted this past stating that symptoms restarted. States she has been having on and off chest pain since her diagnosis in January. States she has not been to a conservation enforcement officer. She states she saw a endocrinology yesterday in the area, KEVAN de los santos, reported that she was referred to the emergency department for full workup of her myasthenia gravis and to see cardiology. Complains of urine frequency. I spoke with KEVAN de los santos after evaluation, patient had intermittent complaints during the one hour evaluation of chest discomfort shortness of breath and she was referred due to the symptoms. She reports she did not have enough information to fully evaluate the patient's history due to patient not being forthright with all her diagnosis. She found out she has history of Graves' and hyperthyroidism supposed to be on methimazole however has not taken it for years. She states due to being on prednisone, patient is requesting adrenal workup, states unless her steroids are reduced to 7.5 mg if able is recommended by her specialist then they may work that up from an endocrinology standpoint otherwise no further workup by endocrinology at this time. She was referred to Dr. Weaver and Dr. Thompson in the area as an outpatient. Physical Examination: General: Alert and oriented ?3, no acute distress, anxious HEENT: Normocephalic, atraumatic. Moist mucosa membranes Neck: supple, nontender. Cardiovascular: Regular rate and rhythm, no murmurs Respiratory: Normal breath sounds, symmetric, no distress Abdomen: Soft, nontender, nondistended Extremities: Nontender, no edema, pulses intact ?4 Neuro: no focal neurological deficits. Test Results: EKG: Sinus rate of 54, no ST changes. Isolated T wave inversion in leads III. QTc 419. No AV blocks. White count 6.9 hemoglobin 12.8. Sodium 142. Creatinine 0.97. Liver enzymes normal. Urine notes leukocytes nitrites and bacteria. Urine culture sent. Troponin negative. TSH 0.59. Chest x-ray negative. Emergency Department Course and Treatment: Patient worked up for shortness of breath chest pain and urine symptoms. Results shows no pneumonia. Cardiac workup negative. Urine shows infection. Urine culture sent. She started on Bactrim for 5 days for non-complicated UTI. Discuss upper respiratory infection with the patient. She was placed on a Holter monitor due to bradycardia that was sinus on the monitor. She does have a referral Dr. Weaver. Patient will follow-up as an outpatient. Treatment Plan: [] Disposition: Discharge Impression: 1. Urinary tract infection 2. Fatigue 3. Upper respiratory infection 4. Sinus bradycardia 5. Atypical chest pain This note was generated with [employer] dictation software. It may contain incorrect words, spelling, and punctuation that were not noted in review of the chart prior to signing ED Disposition - Plan for ED Patient: Disposition: Home or Assisted Living Chief Complaint: Shortness of Breath Diagnosis: Urinary tract infection, Sinus bradycardia, Upper respiratory infection, Atypical chest pain Instructions: ED Upper Resp Infec No Abx Tx, Urinary Tract Infections in Women, ED Bradycardia Prescriptions: Smz/Tmp Ds [Bactrim Ds] 1 tablet PO BID #9 tablet Referrals: Cesar Weaver MD [STAFF PHYSICIAN] - 3-5 Days Anirudh Nance MD [Primary Care Provider] - 3-5 Days Additional Instructions: Continue home on monitor for 48 hours. Take your antibiotics and can take with food. Follow-up as an outpatient.
[2018-07-03 16:43] VITALS: BP 114/62; PULSE 86; RESP 14; O2SAT 98
[2018-07-03 16:47] LABS: Mucous, Urine 0 SEEN /hpf (<or=2+); Red Blood Cells-Urine 0 SEEN /hpf (0-5)
[2018-07-03 16:58] LABS: Color, Urine Yellow (Yellow); Glucose, Dipstick Normal (Normal); Ketone-Dipstick Negative (Negative); Leukocyte Esterase-Dipstick 25 /ul (Negative); Nitrite-Dipstick Positive (Negative); Occult Blood-Urine Negative /ul (Negative); Protein-Dipstick Negative (Negative); Specific Gravity, Urine 1.025 (1.002-1.030); Urine Bilirubin Dipstick Negative (Negative); Urine Clarity Sl. Cloudy (Clear); Urine Urobilinogen Normal (Normal)
[2018-07-03 17:15] LABS: Bacteria 4+ /hpf (None Seen); Squamous Epithelial Cells - UA 0-5 SEEN /hpf (5-10); White Blood Cells 0-5 SEEN /hpf (0-5)
[2018-07-03] MEDS: Smz/Tmp Ds Tablet 1 TABLET PO (17:50)
[2018-07-03 18:24] VITALS: BP 122/82; PULSE 84; RESP 18; O2SAT 99
--- NOTE | 2018-07-04 10:33 | CM.ED ---
ED CALLBACK: Follow-up call placed to patient with no answer. Voicemail left with return contact information.
== END 2018-07-03 18:25 | disposition home or self-care (01) ==
PROVIDERS: Emergency Provider Emergency Medicine; Family Provider Family Medicine; PCP Family Medicine
DX: N39.0 Urinary tract infection, site not specified (principal); R53.83 Other fatigue; J06.9 Acute upper respiratory infection, unspecified; G70.00 Myasthenia gravis without (acute) exacerbation; R00.1 Bradycardia, unspecified; R07.89 Other chest pain; Z79.52 Long term (current) use of systemic steroids; Z79.899 Other long term (current) drug therapy; Z87.891 Personal history of nicotine dependence
CPT/HCPCS: 71046; 80053; 81001; 84443; 84484; 85025; 87077; 87086; 87088; 87186; 93005; 93225; 99285; A4216

== ENCOUNTER → 2018-07-03 16:15 | Outpatient (CLI) | payer MEDICAID, SELFPAY | PROVIDERS: Family Provider Family Medicine; PCP Family Medicine; Visit Provider Emergency Medicine | DX: R00.1 Bradycardia, unspecified (principal) ==

== ENCOUNTER → 2018-08-06 14:41 | Outpatient (CLI) | payer MEDICAID, SELFPAY ==
--- NOTE | 2018-08-06 14:42 | ECHOD_ITS ---
Reason For Study: Arrhythmia Procedure This was a 2D Doppler, Color Flow transthoracic echocardiogram. Exam performed in department. Left Ventricle Normal LV size. Mild concentric left ventricular hypertrophy. Left ventricular systolic function is normal. The estimated ejection fraction is 60 %. Normal diastology for age. No regional wall motion abnormalities noted. Right Ventricle Normal RV size. Normal systolic function. Atria Normal left atrium. Normal right atrium. Mitral Valve Normal mitral valve. Tricuspid Valve Normal tricuspid valve. Mild (1+) tricuspid valve insufficiency. Pulmonary artery systolic pressure is 26 mmHg. Aortic Valve Normal aortic valve. Trisinus/trileaflet aortic valve. Pulmonic Valve Normal pulmonic valve. Great Vessels Normal aortic root. The pulmonary artery is normal size. Normal inferior vena cava. Pericardium/Pleural No pericardial effusion. MMode/2D Measurements & Calculations LVIDd: 4.1 cm IVSd: 1.2 cm Ao root diam: 3.5 cm LVIDs: 2.6 cm LVPWd: 1.3 cm LA dimension: 4.2 cm RVDd: 3.6 cm FS: 35.8 % LAV(MOD-bp): 54.1 ml LA A4 area: 20.1 cm2 RA A4 area: 20.5 cm2 LAV(MOD-bp) Indexed: 24.4 ml/m2 LAV(MOD-sp2): 49.6 ml LAV(MOD-sp4): 57.1 ml Time Measurements MV dec time: 0.18 sec Doppler Measurements & Calculations MV E max rodger: 85.3 cm/sec Lat Peak E' Rodger: 15.6 cm/sec Med Peak E' Rodger: 9.1 cm/sec MV A max rodger: 66.2 cm/sec E/E' lat: 5.5 E/E' med: 9.3 MV E/A: 1.3 MV V2 max: 110.7 cm/sec MV P1/2t max rodger: 109.8 cm/sec Ao V2 max: 139.6 cm/sec MV max P.9 mmHg MV P1/2t: 78.0 msec Ao max P.8 mmHg MV V2 mean: 59.4 cm/sec MV dec slope: 412.4 cm/sec2 Ao V2 mean: 90.7 cm/sec MV mean P.7 mmHg MVA(P1/2t): 2.8 cm2 Ao mean P.7 mmHg MV V2 VTI: 30.1 cm Ao V2 VTI: 27.7 cm LV V1 max: 113.6 cm/sec PA V2 max: 75.1 cm/sec TR max rodger: 225.4 cm/sec LV V1 max P.2 mmHg TR max P.3 mmHg LV V1 mean P.5 mmHg LV V1 mean: 74.4 cm/sec LV V1 VTI: 24.0 cm Interpretation Summary Normal LV size. Left ventricular systolic function is normal. The estimated ejection fraction is 60 %. Normal diastology for age. Mild (1+) tricuspid valve insufficiency. Mild concentric left ventricular hypertrophy. Ordering Physician: Cesar Weaver Referring Physician: MD Tony Nance Performed By: Brodwolf, Yanick, RCS
== END ==
PROVIDERS: Family Provider Family Medicine; PCP Family Medicine; Referring Provider Internal Medicine Cardiovascular Disease; Visit Provider Internal Medicine Cardiovascular Disease
DX: R00.1 Bradycardia, unspecified (principal)
CPT/HCPCS: 93306

== ENCOUNTER 2018-10-31 16:52 | Emergency (ER) | payer MEDICAID, SELFPAY ==
[2018-10-31 16:57] VITALS: BP 147/85; PULSE 52; RESP 16; TEMP 36.3; O2SAT 99; BMI 36.5
--- NOTE | 2018-10-31 17:33 | RAD_ITS ---
STUDY: X-RAY CHEST REASON FOR EXAM: Female, 48 years old. Sternal chest pain. TECHNIQUE: Portable chest. COMPARISON: 07/03/2018. FINDINGS: The lungs are clear and expanded. There is no demonstrated pleural abnormality. Normal size heart. Normal mediastinum and kenyetta. Normal visualized pulmonary arteries. Normal visualized aortic arch and descending thoracic aorta. Normal visualized thoracic spine. Normal visualized ribs, clavicles, and shoulders. There is no demonstrated abnormality of the visualized soft tissue structures of the upper abdomen. RAD/Chest 1 View (Portable) IMPRESSION: Normal x-ray examination of the chest. Electronically Signed: Cammy Zhang MD at 18:00 EST Tel , Service support ,
--- NOTE | 2018-10-31 17:33 | EKG12_ITS ---
Test Reason : CP Blood Pressure : / mmHG Vent. Rate : 050 BPM Atrial Rate : 050 BPM P-R Int : 162 ms QRS Dur : 086 ms QT Int : 466 ms P-R-T Axes : 036 002 012 degrees QTc Int : 424 ms Sinus bradycardia Otherwise normal ECG Confirmed by GAIL TERRY, DUSTIN ([id number]), editor managing director MARY VIZCAINO ([id number]) on 11/06/2018 11:17:08 AM Referred By: ELEAZAR Confirmed By:DUSTIN REYNOLDS MD
--- NOTE | 2018-10-31 17:38 | ED.DCSUM_ITS ---
- ER Visit Summary Date of Service: 10/31/18 Chief Complaint: Chest pain History of Present Illness: The patient is a 48 F presenting with chest pain. She states this started at 5 PM yesterday. She states it has been constant for the past 24 hours. She has a history of GERD and tried Pepcid at home. She states that this did not help like it usually does. She also has a history of myasthenia gravis. She was concerned that her heart rate was in the 50s. Denies shortness of breath or syncope. Physical Examination: Vitals are stable. Patient is afebrile. Alert no acute distress. HEENT exam is unremarkable. Neck is supple. Lungs are clear and equal bilaterally. Chest tender to palpation with no crepitus Heart is regular and bradycardic Abdomen is soft nontender nondistended. Extremities are unremarkable. Skin is warm and dry. No focal neurologic deficit. Remainder of exam is unremarkable. Emergency Department Course and Treatment: She was given a GI cocktail. She was given IV fluids. EKG shows sinus bradycardia rate of 50. Chest x-ray shows no acute process. Orthostatics are negative. Her ambulatory pulse ox is 97% on room air. CBC, chemistries unremarkable. Troponin is negative. TSH is normal. Her heart rate has remained in the mid 50s to low 60s in the ED. She is resting comfortably. She is advised to follow up with her primary care physician. Advised return to ED if worsening complaints. Disposition: Discharge home Impression: Atypical chest pain This note was generated with [employer] dictation software. It may contain incorrect words, spelling, and punctuation that were not noted in review of the chart prior to signing ED Disposition - Plan for ED Patient: Instructions: ED Chest Pain Atypical Unkn Cause Referrals: Dennis Brenner MD [STAFF PHYSICIAN] - Cesar Weaver MD [STAFF PHYSICIAN] - Anirudh Nance MD [Primary Care Provider] -
[2018-10-31] MEDS: Mag Hydrox/Al Hydrox/Simeth 30 ML UDC PO (18:11)
[2018-10-31] MEDS: 0.9% Normal Saline 1,000 ML 1000 ML IV (18:15)
[2018-10-31 18:16] VITALS: BP 116/81; PULSE 58; RESP 16; O2SAT 100
--- NOTE | 2018-10-31 18:21 | ED.RN ---
PT'S IV INFILTRATED, SLIGHT SWELLING AT SITE, IV DC'D, WARM COMPRESS APPLIED. MD AWARE, WILL NOT START ANOTHER IV PER MD. PT REFUSES TO ALLOW MEDIC ACCESS TO ANY OTHER POTENTIAL IV SITES, STATES MY VEINS WON'T HOLD.
[2018-10-31 18:47] LABS: Absolute Neutrophil Count 4.1 X10^3/uL (2.0-7.7); Basophil# 0.03 X10^3/uL; Basophil% 0.5 % (0-1); Eosinophil# 0.05 X10^3/uL; Eosinophils% 0.8 % (0-5); Hematocrit 37.5 % (37-47); Hemoglobin 12.5 g/dl (12.0-15.0); Mean Corp Hgb Conc 33.3 g/gl (32-36); Mean Corpuscular Hgb 29.3 pg (27.0-32.0); Mean Platelet Vol. 11.3 fl (6.2-12.0); Monocyte# 0.34 X10^3/uL; Monocyte% 5.7 % (0-10); Neutrophil # 4.06 X10^3/uL (2.7-7.7); Neutrophil % 67.8 % (47-70); Platelet Count 236 K/mm3 (150-450); RBC Distribution Width CV 13.2 % (11.6-14.6); RBC Distribution Width SD 40.7 fl (35.1-43.9); Red Blood Count 4.26 M/mm3 (4.2-5.4)
[2018-10-31 18:54] LABS: POSITIVE COUNT NO; POSITIVE DIFFERENTIAL NO; POSITIVE MORPHOLOGY NO
[2018-10-31 18:58] LABS: Anion Gap 8 (5-15); BUN 10 mg/dL (7-18); BUN/Creat Ratio 10.2 RATIO (10-20); Calcium,Total 9.1 mg/dL (8.5-10.1); Chloride 108 mmol/L (98-107); Creatinine, Serum 0.98 mg/dL (0.55-1.02); EST Glomerular Filtration Rate 64 mL/min (>60); Est Glom Filt Rate - Afr Amer 78 mL/min (>60); Estimated Creatinine Clearance 70.82 ml/min; Glucose 95 mg/dL (74-106); Sodium Level 142 mmol/L (136-145)
[2018-10-31 19:41] VITALS: BP 126/86; BP 137/81; BP 138/86; PULSE 54; PULSE 57; PULSE 63
[2018-10-31 20:04] VITALS: O2SAT 98
--- NOTE | 2018-10-31 20:05 | ED.RN ---
AMBULATED WITH SPO2 MONITOR, HEART RATE 71-78 WHILE AMBULATING.
[2018-10-31 21:00] VITALS: BP 131/74; PULSE 59; RESP 16; O2SAT 97
--- NOTE | 2018-10-31 22:07 | ED.DEP ---
ED Disposition - Plan for ED Patient: Instructions: ED Chest Pain Atypical Unkn Cause Referrals: Anirudh Nance MD [Primary Care Provider] - Dennis Brenner MD [STAFF PHYSICIAN] - Cesar Weaver MD [STAFF PHYSICIAN] -
[2018-10-31 22:19] VITALS: BP 137/81; PULSE 61; RESP 16; O2SAT 98
== END 2018-10-31 22:20 | disposition home or self-care (01) ==
LOC: ED 17:28
PROVIDERS: Emergency Provider Emergency Medicine; Family Provider Family Medicine; PCP Family Medicine
DX: R07.89 Other chest pain (principal); R00.1 Bradycardia, unspecified; G70.00 Myasthenia gravis without (acute) exacerbation; K21.9 Gastro-esophageal reflux disease without esophagitis; Z79.899 Other long term (current) drug therapy
CPT/HCPCS: 71045; 80048; 84443; 84484; 85025; 93005; 99285; J7030; A4216

== ENCOUNTER 2025-09-16 08:50 | Outpatient (CLI) | payer MEDICAID, SELFPAY | END 2025-09-16 23:59 | disposition home or self-care (01) | LOC: CT 08:53 | PROVIDERS: PCP Family Medicine; Referring Provider Otolaryngology; Visit Provider Otolaryngology | DX: J32.8 Other chronic sinusitis (principal) ==